=== PATIENT | female | born 1975 ===

== ENCOUNTER 2016-10-30 09:58 | Emergency (ER) | payer OTHER ==
[2016-10-30 10:02] VITALS: TEMP 97.7; O2SAT 98
[2016-10-30] MEDS ORDERED: Naproxen 550 mg Tab PO STA (10:24)
[2016-10-30] MEDS ORDERED: Naproxen 550 mg Tab PO ONE (10:31)
--- NOTE | 2016-10-30 10:59 | C.PDOC ---
History Of Present Illness Pt c/o b/l heel area pain. Denies trauma. Time Seen by Provider: 10/30/16 10:15 Chief Complaint (Nursing): Lower Extremity Problem/Injury History Per: Patient Onset/Duration Of Symptoms: Days (about 1 month), Waxing/Waning Current Symptoms Are (Timing): Still Present Severity: Moderate Additional History Per: Prior Records Past Medical History Reviewed: Historical Data, Nursing Documentation, Vital Signs Vital Signs: Last Vital Signs Temp 97.7 F 10/30/16 10:00 Pulse 95 H 10/30/16 10:00 Resp 20 10/30/16 10:00 BP 137/84 10/30/16 10:00 Pulse Ox 98 10/30/16 10:59 - Medical History PMH: HTN, Hypercholesterolemia Family History: States: Unknown Family Hx - Social History Hx Tobacco Use: No Hx Alcohol Use: No Hx Substance Use: No - Immunization History Hx Tetanus Toxoid Vaccination: Yes Hx Influenza Vaccination: No Hx Pneumococcal Vaccination: Yes Review Of Systems Except As Marked, All Systems Reviewed And Found Negative. Constitutional: Negative for: Fever, Weakness Cardiovascular: Negative for: Chest Pain Respiratory: Negative for: Shortness of Breath Gastrointestinal: Negative for: Vomiting, Abdominal Pain Musculoskeletal: Positive for: Foot Pain. Negative for: Neck Pain, Leg Pain Skin: Negative for: Rash Neurological: Negative for: Weakness, Numbness, Seizures, Altered Mental Status Physical Exam - Physical Exam Appears: Non-toxic, No Acute Distress Skin: Normal Color, Warm, Dry, No Rash Head: Atraumatic, Normacephalic Eye(s): bilateral: Normal Inspection, PERRL, EOMI Neck: Normal ROM, Supple Cardiovascular: Rhythm Regular Respiratory: Normal Breath Sounds, No Accessory Muscle Use Gastrointestinal/Abdominal: Soft, No Tenderness Back: No CVA Tenderness Extremity: Normal ROM, Tenderness (b/l heel areas), No Calf Tenderness, Capillary Refill (wnl), No Deformity Extremity: Bilateral: Normal Color And Temperature Pulses: Left Dorsalis Pedis: Normal, Right Dorsalis Pedis: Normal Neurological/Psych: Oriented x3, Normal Motor, Normal Sensation ED Course And Treatment O2 Sat by Pulse Oximetry: 98 Pulse Ox Interpretation: Normal - Other Rad b/l foot x-rays X-Ray: Interpreted by Me, Viewed By Me Interpretation: No acute fx or dislocation. b/l heel spurs. Disposition Counseled Patient/Family Regarding: Studies Performed, Diagnosis, Need For Followup, Rx Given - Disposition Referrals: Lenny Olmos MD [Medical Doctor] - [facility] [Outside] Disposition: HOME/ ROUTINE Disposition Time: 11:04 Condition: STABLE Additional Instructions: Follow up with a Oxygen Equipment Technician (foot doctor) for further evaluation and treatment. Return to the ER if you develop worsening of symptoms or if you have any other concerns. Prescriptions: Naproxen [Naprosyn] 1 tab PO BID PRN #20 tab PRN Reason: Pain Instructions: Heel Spur (ED) Print Language: ROMANIAN - Clinical Impression Clinical Impression: Heel spur, Heel pain, bilateral
[2016-10-30 11:12] VITALS: BP 136/84; PULSE 67; RESP 16
--- NOTE | 2016-10-30 13:05 | RAD ---
PROCEDURE: Bilateral Feet Radiographs. HISTORY: b/l posterior foot pain COMPARISON: None. FINDINGS: BONES: Right Foot: Posterior and inferior calcaneal spurring. No fracture. Left Foot: Posterior and inferior calcaneal spurring. No fracture. JOINTS: Right Foot: Normal. No osteoarthritis. Left Foot: Normal. No osteoarthritis. SOFT TISSUES: Bilateral lower leg soft tissue prominence item probably relating to body habitus OTHER FINDINGS: None. IMPRESSION: No fracture. Bilateral calcaneal spurs as above
== END 2016-10-30 11:11 | disposition home or self-care (01) ==
LOC: C.ER 09:58
DX: M77.32 Calcaneal spur, left foot (principal); M77.31 Calcaneal spur, right foot; M79.672 Pain in left foot; M79.671 Pain in right foot